=== PATIENT | female | born 1940 | race Caucasian/White ===

== ENCOUNTER 2020-01-29 21:41 | Emergency (ER) | payer MEDICARE ==
[2020-01-29 21:59] VITALS: RESP 18; TEMP 97.9
[2020-01-29] MEDS ORDERED: diphenhydrAMINE 50 MG/ML 1 ML VIAL IVP STA (22:15)
[2020-01-29] MEDS ORDERED: SODIUM CHLORIDE 0.9% 1,000 ML IV STA (22:15)
[2020-01-29] MEDS ORDERED: ONDANSETRON 4 MG/2 ML VIAL IVP STA (22:15)
[2020-01-29] MEDS ORDERED: KETOROLAC 30 MG/ML 1 ML VIAL IVP STA (22:15)
--- NOTE | 2020-01-29 22:18 | ED ---
General Adult HPI - General Chief complaint: Dizziness Stated complaint: Dizziness Time Seen by Provider: 01/29/20 22:05 Source: patient Mode of arrival: wheelchair Limitations: no limitations - History of Present Illness Initial comments: Dictation was produced using [employer] dictation software. please excuse any grammatical, word or spelling errors. This patient was cared for during a federal and state declared state of emergency secondary to Covid 19 Chief Complaint: 79-year-old female presents with headache, dizziness and weakness. History of Present Illness: Patient is a 71-year-old female she has past medical history dyslipidemia and hypertension. Over the last 48-72 hours she has been suffering from dizziness, headache and weakness. Patient states her headache is bifrontal radiates to the occiput. Patient states she has seen her primary care doctor regarding this. She was told it was a cluster headache. She denies his headache being the worse headache of her life. She reports however that she has not had headaches like this prior to the onset of last 2 weeks. Patient has been having on and off symptoms for the last 2 weeks. Shows reports associated nausea and weakness. She states her nausea is headedness. She does not feel like the room is spinning. She does feel generally weak to her entire body. She was recently started on Fioricet for her cluster headaches. Denies any vision changes. Denies any numbness and paresthesias to the arms or legs. The ROS documented in this emergency department record has been reviewed and confirmed by me. Those systems with pertinent positive or negative responses have been documented in the HPI. All other systems are other negative and/or noncontributory. PHYSICAL EXAM: General Impression: Alert and oriented x3, not in acute distress HEENT: Normocephalic atraumatic, extra-ocular movements intact, pupils equal and reactive to light bilaterally, mucous membranes moist. Cardiovascular: Heart regular rate and rhythm Chest: Able to complete full sentences, no retractions, no tachypnea Abdomen: abdomen soft, non-tender, non-distended, no organomegaly Musculoskeletal: Pulses present and equal in all extremities, no peripheral edema Motor: no focal deficits noted Neurological: CN II-XII grossly intact, no focal motor or sensory deficits noted, negative Kernig's, negative Brudzinski's Skin: Intact with no visualized rashes Psych: Normal affect and mood ED course: 79-year-old female presents with headache, dizziness and generalized weakness. Signs upon arrival are within acceptable limits. EKGs benign. Laboratory evaluation obtained. CBC unremarkable. Metabolic panel shows sodium 128, potassium 3.3, magnesium 1.3. Patient given intravenous fluids, headache cocktail and by mouth magnesium and potassium. C-reactive protein is negative. No concern for cancer arteritis. Patient given intravenous fluids, headache cocktail. Clinical presentation is likely secondary to symptomatic hyponatremia. Hyponatremia is mild. She was given intravenous fluids. Concern that there is a current pandemic patient would prefer to be discharge. She is told to lightly salted food for the next several days. 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 She is told to follow-up with her primary care doctor regarding this. Patient clear for discharge. She is told to return to the emergency Department with any worsening symptoms. EKG interpretation: Ventricular rate 73, normal sinus rhythm, GA interval 152, QRS 96, QTC 453. No GA prolongation, no QTC prolongation, no ST or T-wave changes noted. . Overall, this EKG is unremarkable - Related Data Allergies Allergy/AdvReac Type Severity Reaction Status Date / Time No Known Allergies Allergy Verified 01/29/20 21:59 Review of Systems ROS Statement: Those systems with pertinent positive or pertinent negative responses have been documented in the HPI. ROS Other: All systems not noted in ROS Statement are negative. Past Medical History Past Medical History: Hyperlipidemia, Hypertension History of Any Multi-Drug Resistant Organisms: None Reported Past Surgical History: Hysterectomy Past Psychological History: No Psychological Hx Reported Smoking Status: Never smoker Past Alcohol Use History: None Reported Past Drug Use History: None Reported General Exam Limitations: no limitations Course Vital Signs 01/29/20 01/29/20 21:57 23:00 Temperature 97.9 F Pulse Rate 71 74 Respiratory 18 18 Rate Blood Pressure 172/69 164/70 O2 Sat by Pulse 99 99 Oximetry Medical Decision Making - Lab Data Result diagrams: 01/29/20 22:12 01/29/20 22:12 Lab Results 01/29/20 01/29/20 01/29/20 Range/Units 22:12 22:12 22:12 WBC 9.7 (3.8-10.6) k/uL RBC 4.67 (3.80-5.40) m/uL Hgb 14.0 (11.4-16.0) gm/dL Hct 40.2 (34.0-46.0) % MCV 86.1 (80.0-100.0) fL MCH 30.0 (25.0-35.0) pg MCHC 34.8 (31.0-37.0) g/dL RDW 12.7 (11.5-15.5) % Plt Count 263 (150-450) k/uL Neutrophils % 62 % Lymphocytes % 29 % Monocytes % 6 % Eosinophils % 1 % Basophils % 0 % Neutrophils # 6.0 (1.3-7.7) k/uL Lymphocytes # 2.8 (1.0-4.8) k/uL Monocytes # 0.5 (0-1.0) k/uL Eosinophils # 0.1 (0-0.7) k/uL Basophils # 0.0 (0-0.2) k/uL Sodium 128 L (137-145) mmol/L Potassium 3.3 L (3.5-5.1) mmol/L Chloride 89 L (98-107) mmol/L Carbon Dioxide 28 (22-30) mmol/L Anion Gap 11 mmol/L BUN 18 H (7-17) mg/dL Creatinine 0.73 (0.52-1.04) mg/dL Est GFR (CKD-EPI)AfAm >90 (>60 ml/min/1.73 sqM) Est GFR (CKD-EPI)NonAf 79 (>60 ml/min/1.73 sqM) Glucose 112 H (74-99) mg/dL POC Glucose (mg/dL) (75-99) mg/dL POC Glu Label Cutter ID Calcium 10.1 (8.4-10.2) mg/dL Magnesium 1.3 L (1.6-2.3) mg/dL C-Reactive Protein <5.0 (<10.0) mg/L 01/29/20 Range/Units 22:26 WBC (3.8-10.6) k/uL RBC (3.80-5.40) m/uL Hgb (11.4-16.0) gm/dL Hct (34.0-46.0) % MCV (80.0-100.0) fL MCH (25.0-35.0) pg MCHC (31.0-37.0) g/dL RDW (11.5-15.5) % Plt Count (150-450) k/uL Neutrophils % % Lymphocytes % % Monocytes % % Eosinophils % % Basophils % % Neutrophils # (1.3-7.7) k/uL Lymphocytes # (1.0-4.8) k/uL Monocytes # (0-1.0) k/uL Eosinophils # (0-0.7) k/uL Basophils # (0-0.2) k/uL Sodium (137-145) mmol/L Potassium (3.5-5.1) mmol/L Chloride (98-107) mmol/L Carbon Dioxide (22-30) mmol/L Anion Gap mmol/L BUN (7-17) mg/dL Creatinine (0.52-1.04) mg/dL Est GFR (CKD-EPI)AfAm (>60 ml/min/1.73 sqM) Est GFR (CKD-EPI)NonAf (>60 ml/min/1.73 sqM) Glucose (74-99) mg/dL POC Glucose (mg/dL) 118 H (75-99) mg/dL POC Glu Label Cutter ID Rubén Loya Calcium (8.4-10.2) mg/dL Magnesium (1.6-2.3) mg/dL C-Reactive Protein (<10.0) mg/L Disposition Clinical Impression: Hyponatremia Disposition: HOME SELF-CARE Condition: Good Instructions (If sedation given, give patient instructions): Hyponatremia (ED) Is patient prescribed a controlled substance at d/c from ED?: No Referrals: Nonstaff,Physician [REFERRING] - 1-2 days Time of Disposition: 23:28
[2020-01-29 22:28] LABS: Glucose,Whole Blood 118 mg/dL (75-99)
[2020-01-29 22:32] LABS: Basophils % (A) 0 %; Eosinophils # (A) 0.1 k/uL (0-0.7); Eosinophils % (A) 1 %; HCT 40.2 % (34.0-46.0); Lymphocytes # (A) 2.8 k/uL (1.0-4.8); Lymphocytes % (A) 29 %; MCHC 34.8 g/dL (31.0-37.0); MCV 86.1 fL (80.0-100.0); Mean Platelet Volume 6.7; Monocytes # (A) 0.5 k/uL (0-1.0); Monocytes % (A) 6 %; Neutrophils % (A) 62 %; Platelet Count 263 k/uL (150-450); RBC 4.67 m/uL (3.80-5.40); RDW 12.7 % (11.5-15.5); WBC 9.7 k/uL (3.8-10.6)
[2020-01-29 22:43] LABS: African American GFR (CKD) >90 (>60 ml/min/1.73 sqM); Anion Gap 11 mmol/L; Blood Urea Nitrogen 18 mg/dL (7-17); Calcium 10.1 mg/dL (8.4-10.2); Carbon Dioxide 28 mmol/L (22-30); Chloride 89 mmol/L (98-107); Glucose 112 mg/dL (74-99); Magnesium 1.3 mg/dL (1.6-2.3); Non-African American GFR(CKD) 79 (>60 ml/min/1.73 sqM); Potassium 3.3 mmol/L (3.5-5.1); Sodium 128 mmol/L (137-145)
[2020-01-29] MEDS ORDERED: MAGNESIUM OXIDE 400 MG TAB PO STA (22:50)
[2020-01-29] MEDS ORDERED: POTASSIUM CHLORIDE ER 20 MEQ TAB.ER PO STA (22:53)
--- NOTE | 2020-01-29 23:15 | CT ---
EXAMINATION TYPE: CT brain wo con DATE OF EXAM: 01/29/2020 HISTORY: headache CT DLP: 1099.4 mGycm. Automated Exposure Control for Dose Reduction was Utilized. TECHNIQUE: CT scan of the head is performed without contrast. COMPARISON: None. FINDINGS: There is no acute intracranial hemorrhage or midline shift identified. There is diffuse v entricular and sulcal prominence consistent with mild diffuse age-related cerebral atrophy. There is low-attenuation in the deep and periventricular white matter consistent with chronic small vessel is chemic change in patient of this age. Low lying cerebellar tonsils noted sagittal image 39. The globe s are intact and the visualized sinuses are clear. IMPRESSION: No acute intracranial hemorrhage or midline shift. There is mild diffuse age-related ce rebral atrophy and more moderate to advanced chronic small vessel ischemic change along with underlyi ng Chiari type I malformation noted.
[2020-01-29] MEDS ORDERED: ACETAMINOPHEN TAB 500 MG TAB PO STA (23:27)
[2020-01-30 00:20] VITALS: BP 142/68; PULSE 67
== END 2020-01-30 | disposition home or self-care (01) ==
LOC: EC 21:41
DX: E87.1 Hypo-osmolality and hyponatremia (principal); I10 Essential (primary) hypertension; E78.5 Hyperlipidemia, unspecified
CPT/HCPCS: 36415; 93005; 80048; 83735; 85025; 86140; 70450; 99285; 96374; 96375 ×2; 96361; J1200; J2405; J1885

== ENCOUNTER 2021-10-28 03:29 | Emergency (ER) | payer MEDICARE ==
[2021-10-28 03:37] VITALS: TEMP 97.9
[2021-10-28] MEDS ORDERED: SODIUM CHLORIDE 0.9% 500 ML 500 ML IV STA (03:47)
[2021-10-28] MEDS ORDERED: LORazepam 2 MG/ML INJ IV STA (03:50)
--- NOTE | 2021-10-28 03:53 | ED ---
General Adult HPI - General Chief complaint: Recheck/Abnormal Lab/Rx Stated complaint: HBP, Headache Time Seen by Provider: 10/28/21 03:35 Source: patient, EMS Mode of arrival: EMS Limitations: no limitations - History of Present Illness Initial comments: This patient is an 81-year-old woman who presents to be evaluated for hypertension. The patient states that she was at home tonight and she woke up with a feeling like her head was pounding. She went and checked her blood pressure and it was 165/90 or so. She states that she started to feel anxious and every time she checked her blood pressure was higher. The patient denies chest pain states that she was only feeling a little bit of a pounding. She states that they had sensation is very mild. No dyspnea, diaphoresis, nausea or vomiting. Onset/Timin -: hour(s) Location: head, chest Severity scale (1-10): 2 Quality: other (Pounding) Consistency: constant Improves with: none Worsens with: none Associated Symptoms: denies other symptoms Treatments Prior to Arrival: none - Related Data Previous Rx's Medication Instructions Recorded Magnesium Oxide [Magox 400] 400 mg PO DAILY #15 tablet 10/28/21 Potassium Chloride ER [K-Dur 20] 20 meq PO DAILY #15 tab 10/28/21 Allergies Allergy/AdvReac Type Severity Reaction Status Date / Time No Known Allergies Allergy Verified 10/28/21 03:32 Review of Systems ROS Statement: Those systems with pertinent positive or pertinent negative responses have been documented in the HPI. ROS Other: All systems not noted in ROS Statement are negative. Constitutional: Denies: fever, chills, weakness Eyes: Denies: eye pain, vision change Respiratory: Denies: cough, dyspnea Cardiovascular: Reports: as per HPI, chest pain, palpitations. Denies: o rthopnea, edema, syncope Gastrointestinal: Denies: abdominal pain, vomiting, diarrhea Genitourinary: Denies: dysuria, hematuria Musculoskeletal: Denies: back pain Skin: Denies: rash Neurological: Reports: headache. Denies: weakness, numbness Psychiatric: Reports: anxiety Past Medical History Past Medical History: Hyperlipidemia, Hypertension, Renal Disease History of Any Multi-Drug Resistant Organisms: None Reported Past Surgical History: Hysterectomy Past Psychological History: No Psychological Hx Reported Smoking Status: Former smoker Past Alcohol Use History: None Reported Past Drug Use History: None Reported General Exam Limitations: no limitations General appearance: alert, in no apparent distress, anxious Head exam: Present: atraumatic, normocephalic Eye exam: Present: normal appearance. Absent: scleral icterus, conjunctival injection Respiratory exam: Present: normal lung sounds bilaterally. Absent: respiratory distress, wheezes, rales, rhonchi, stridor Cardiovascular Exam: Present: regular rate, normal rhythm, normal heart sounds. Absent: systolic murmur, diastolic murmur, rubs, gallop GI/Abdominal exam: Present: soft. Absent: distended, tenderness, guarding, rebound, rigid, mass Extremities exam: Present: normal inspection, normal capillary refill. Absent: pedal edema, calf tenderness Back exam: Present: normal inspection. Absent: CVA tenderness (R), CVA tenderness (L) Neurological exam: Present: alert Skin exam: Present: warm, dry, intact, normal color. Absent: rash Course Vital Signs 10/28/21 10/28/21 10/28/21 03:32 04:37 05:05 Temperature 97.9 F Pulse Rate 74 60 60 Respiratory 16 16 14 Rate Blood Pressure 168/71 142/62 116/60 O2 Sat by Pulse 98 98 97 Oximetry EKG Findings - EKG Results: EKG: interpreted by MALISSA, sinus rhythm (Rate 70 bpm), normal axis, normal ST/T - Blocks, Cornelia, Hypertrophy, ST Abn: QRS axis and voltage: low voltage (<0.5 MV total QRS and <1.0 MV in each precordial lead) Repolarization changes or abnormalities: nonspecific abnormality, ST segment, and/or T wave Medical Decision Making - Lab Data Result diagrams: 10/28/21 03:45 10/28/21 03:45 Lab Results 10/28/21 10/28/21 10/28/21 Range/Units 03:45 03:45 03:45 WBC 10.6 (3.8-10.6) k/uL RBC 4.42 (3.80-5.40) m/uL Hgb 13.2 (11.4-16.0) gm/dL Hct 39.1 (34.0-46.0) % MCV 88.5 (80.0-100.0) fL MCH 29.8 (25.0-35.0) pg MCHC 33.7 (31.0-37.0) g/dL RDW 13.5 (11.5-15.5) % Plt Count 228 (150-450) k/uL MPV 7.2 Neutrophils % 76 % Lymphocytes % 17 % Monocytes % 4 % Eosinophils % 1 % Basophils % 0 % Neutrophils # 8.1 H (1.3-7.7) k/uL Lymphocytes # 1.8 (1.0-4.8) k/uL Monocytes # 0.5 (0-1.0) k/uL Eosinophils # 0.1 (0-0.7) k/uL Basophils # 0.0 (0-0.2) k/uL PT 10.6 (9.0-12.0) sec INR 1.0 (<1.2) APTT 25.4 (22.0-30.0) sec Sodium 131 L (137-145) mmol/L Potassium 3.3 L (3.5-5.1) mmol/L Chloride 98 (98-107) mmol/L Carbon Dioxide 21 L (22-30) mmol/L Anion Gap 12 mmol/L BUN 15 (7-17) mg/dL Creatinine 0.69 (0.52-1.04) mg/dL Est GFR (CKD-EPI)AfAm >90 (>60 ml/min/1.73 sqM) Est GFR (CKD-EPI)NonAf 83 (>60 ml/min/1.73 sqM) Glucose 133 H (74-99) mg/dL Calcium 8.8 (8.4-10.2) mg/dL Magnesium 1.4 L (1.6-2.3) mg/dL Total Bilirubin 0.7 (0.2-1.3) mg/dL AST 31 (14-36) U/L ALT 32 (4-34) U/L Alkaline Phosphatase 92 (38-126) U/L Troponin I (0.000-0.034) ng/mL Total Protein 6.9 (6.3-8.2) g/dL Albumin 4.2 (3.5-5.0) g/dL 10/28/21 Range/Units 03:45 WBC (3.8-10.6) k/uL RBC (3.80-5.40) m/uL Hgb (11.4-16.0) gm/dL Hct (34.0-46.0) % MCV (80.0-100.0) fL MCH (25.0-35.0) pg MCHC (31.0-37.0) g/dL RDW (11.5-15.5) % Plt Count (150-450) k/uL MPV Neutrophils % % Lymphocytes % % Monocytes % % Eosinophils % % Basophils % % Neutrophils # (1.3-7.7) k/uL Lymphocytes # (1.0-4.8) k/uL Monocytes # (0-1.0) k/uL Eosinophils # (0-0.7) k/uL Basophils # (0-0.2) k/uL PT (9.0-12.0) sec INR (<1.2) APTT (22.0-30.0) sec Sodium (137-145) mmol/L Potassium (3.5-5.1) mmol/L Chloride (98-107) mmol/L Carbon Dioxide (22-30) mmol/L Anion Gap mmol/L BUN (7-17) mg/dL Creatinine (0.52-1.04) mg/dL Est GFR (CKD-EPI)AfAm (>60 ml/min/1.73 sqM) Est GFR (CKD-EPI)NonAf (>60 ml/min/1.73 sqM) Glucose (74-99) mg/dL Calcium (8.4-10.2) mg/dL Magnesium (1.6-2.3) mg/dL Total Bilirubin (0.2-1.3) mg/dL AST (14-36) U/L ALT (4-34) U/L Alkaline Phosphatase (38-126) U/L Troponin I <0.012 (0.000-0.034) ng/mL Total Protein (6.3-8.2) g/dL Albumin (3.5-5.0) g/dL Disposition Clinical Impression: Hypertension, Hypokalemia, Hypomagnesemia Disposition: HOME SELF-CARE Condition: Good Instructions (If sedation given, give patient instructions): Hypertension (ED) Prescriptions: Potassium Chloride ER [K-Dur 20] 20 meq PO DAILY #15 tab Magnesium Oxide [Magox 400] 400 mg PO DAILY #15 tablet Is patient prescribed a controlled substance at d/c from ED?: No Referrals: Melissa Duffy DO [Primary Care Provider] - 1-2 days
[2021-10-28 03:58] LABS: Basophils % (A) 0 %; Eosinophils # (A) 0.1 k/uL (0-0.7); Eosinophils % (A) 1 %; HCT 39.1 % (34.0-46.0); HGB 13.2 gm/dL (11.4-16.0); Lymphocytes # (A) 1.8 k/uL (1.0-4.8); Lymphocytes % (A) 17 %; MCH 29.8 pg (25.0-35.0); MCHC 33.7 g/dL (31.0-37.0); MCV 88.5 fL (80.0-100.0); Mean Platelet Volume 7.2; Monocytes # (A) 0.5 k/uL (0-1.0); Monocytes % (A) 4 %; Neutrophils # (A) 8.1 k/uL (1.3-7.7); Neutrophils % (A) 76 %; Platelet Count 228 k/uL (150-450); RBC 4.42 m/uL (3.80-5.40); RDW 13.5 % (11.5-15.5); WBC 10.6 k/uL (3.8-10.6)
[2021-10-28 04:07] LABS: Partial Thromboplastin Time 25.4 sec (22.0-30.0); Prothrombin Time 10.6 sec (9.0-12.0)
--- NOTE | 2021-10-28 04:11 | XR ---
EXAMINATION TYPE: XR chest 1V portable DATE OF EXAM: 10/28/2021 COMPARISON: NONE HISTORY: Chest TECHNIQUE: Single view FINDINGS: There is minimal pleural reaction lateral left lung base. Heart is top normal in size. Ther e is no heart failure. There are no hilar masses. Bony thorax is intact. IMPRESSION: Minimal pleural reaction or infiltrate lateral left lung base. No heart failure.
[2021-10-28 04:19] LABS: ALT 32 U/L (4-34); AST 31 U/L (14-36); African American GFR (CKD) >90 (>60 ml/min/1.73 sqM); Albumin 4.2 g/dL (3.5-5.0); Alkaline Phosphatase 92 U/L (38-126); Anion Gap 12 mmol/L; Blood Urea Nitrogen 15 mg/dL (7-17); Calcium 8.8 mg/dL (8.4-10.2); Carbon Dioxide 21 mmol/L (22-30); Chloride 98 mmol/L (98-107); Glucose 133 mg/dL (74-99); Magnesium 1.4 mg/dL (1.6-2.3); Non-African American GFR(CKD) 83 (>60 ml/min/1.73 sqM); Potassium 3.3 mmol/L (3.5-5.1); Sodium 131 mmol/L (137-145); Total Bilirubin 0.7 mg/dL (0.2-1.3); Total Protein 6.9 g/dL (6.3-8.2)
[2021-10-28] MEDS ORDERED: MAGNESIUM OXIDE 400 MG TAB PO STA (05:05)
[2021-10-28] MEDS ORDERED: POTASSIUM CHLORIDE ER 20 MEQ TAB.ER PO STA (05:05)
[2021-10-28 07:38] VITALS: BP 120/64; PULSE 76; RESP 18
== END 2021-10-28 07:38 | disposition home or self-care (01) ==
LOC: EC 03:29
DX: I10 Essential (primary) hypertension (principal); E87.6 Hypokalemia; E83.42 Hypomagnesemia; E78.5 Hyperlipidemia, unspecified; Z90.710 Acquired absence of both cervix and uterus; Z87.891 Personal history of nicotine dependence
CPT/HCPCS: 36415; 71045; 80053; 83735; 84484; 85025; 85610; 85730; 93005; 96361; 96374; 99284

== ENCOUNTER 2022-12-22 00:18 | Emergency (ER) | payer MEDICARE ==
[2022-12-22 00:44] VITALS: RESP 18
[2022-12-22 01:58] VITALS: PULSE 69; TEMP 98
[2022-12-22] MEDS ORDERED: SODIUM CHLORIDE 0.9% 500 ML 500 ML IV STA (02:00)
[2022-12-22 02:45] LABS: Basophils % (A) 0 %; Eosinophils % (A) 0 %; HCT 38.4 % (34.0-46.0); HGB 13.4 gm/dL (11.4-16.0); Lymphocytes # (A) 1.6 k/uL (1.0-4.8); Lymphocytes % (A) 12 %; MCH 29.5 pg (25.0-35.0); MCHC 34.9 g/dL (31.0-37.0); MCV 84.4 fL (80.0-100.0); Mean Platelet Volume 7.1; Monocytes # (A) 0.5 k/uL (0-1.0); Monocytes % (A) 4 %; Neutrophils # (A) 10.8 k/uL (1.3-7.7); Neutrophils % (A) 83 %; Platelet Count 239 k/uL (150-450); RBC 4.55 m/uL (3.80-5.40); RDW 12.7 % (11.5-15.5)
[2022-12-22 02:59] LABS: ALT 34 U/L (4-34); AST 29 U/L (14-36); African American GFR (CKD) >90 (>60 ml/min/1.73 sqM); Albumin 4.4 g/dL (3.5-5.0); Alkaline Phosphatase 123 U/L (38-126); Blood Urea Nitrogen 11 mg/dL (7-17); Calcium 9.3 mg/dL (8.4-10.2); Carbon Dioxide 26 mmol/L (22-30); Glucose 131 mg/dL (74-99); Magnesium 1.6 mg/dL (1.6-2.3); Non-African American GFR(CKD) 88 (>60 ml/min/1.73 sqM); Total Bilirubin 0.6 mg/dL (0.2-1.3); Total Protein 7.4 g/dL (6.3-8.2)
--- NOTE | 2022-12-22 02:59 | ED ---
General Adult HPI - General Chief complaint: GI Bleed Stated complaint: High BloodPressure Time Seen by Provider: 12/22/22 01:50 Source: patient, RN notes reviewed, old records reviewed Mode of arrival: ambulatory - History of Present Illness Initial comments: 82-year-old female presents for evaluation. Patient states that her blood pressure had been running high and she was concerned. She had some mild abdominal discomfort and had noticed some bright red blood on the toilet paper. She does have a history of hemorrhoids. Combination of these symptoms that prompt an ER visit for evaluation. She has no chest pain. No cough. No fever. No dyspnea. No abdominal pain, describes this as a mild discomfort. - Related Data Previous Rx's Medication Instructions Recorded Magnesium Oxide [Magox 400] 400 mg PO DAILY #15 tablet 10/28/21 Potassium Chloride ER [K-Dur 20] 20 meq PO DAILY #15 tab 10/28/21 Allergies Allergy/AdvReac Type Severity Reaction Status Date / Time No Known Allergies Allergy Verified 12/22/22 00:44 Review of Systems ROS Statement: Those systems with pertinent positive or pertinent negative responses have been documented in the HPI. ROS Other: All systems not noted in ROS Statement are negative. Past Medical History Past Medical History: Hyperlipidemia, Hypertension, Renal Disease History of Any Multi-Drug Resistant Organisms: None Reported Past Surgical History: Hysterectomy Past Psychological History: No Psychological Hx Reported Smoking Status: Former smoker Past Alcohol Use History: None Reported Past Drug Use History: None Reported General Exam General appearance: alert, in no apparent distress Head exam: Present: atraumatic, normocephalic Eye exam: Present: normal appearance, PERRL ENT exam: Present: normal exam Neck exam: Present: normal inspection. Absent: tenderness, meningismus Respiratory exam: Present: normal lung sounds bilaterally. Absent: respiratory distress, wheezes Cardiovascular Exam: Present: regular rate, normal rhythm GI/Abdominal exam: Present: soft. Absent: distended, tenderness, guarding, rebound Rectal exam: Present: hemorrhoids Extremities exam: Present: normal inspection, normal capillary refill. Absent: pedal edema, calf tenderness Neurological exam: Present: alert, oriented X3, CN II-XII intact. Absent: motor sensory deficit Psychiatric exam: Present: normal affect, normal mood Skin exam: Present: warm, dry, intact. Absent: cyanosis, diaphoretic Course Vital Signs 12/22/22 12/22/22 12/22/22 00:37 01:44 02:53 Temperature 98.3 F 98 F Pulse Rate 67 69 Respiratory 18 18 Rate Blood Pressure 159/77 183/74 157/89 O2 Sat by Pulse 98 94 L Oximetry EKG Findings - EKG Comments: EKG Findings:: EKG: Sinus rhythm, ventricular rate 65, MS interval 161, QRS duration 100, QTC 450, no ST segment elevation. Medical Decision Making - Medical Decision Making Was pt. sent in by a medical professional or institution (, PA, MENS LOCKER ROOM ATTENDANT, urgent care, hospital, or custodial...) When possible be specific @ -[No] Did you speak to anyone other than the patient for history (EMS, parent, family, police, friend...)? What history was obtained from this source @ -[No] Did you review nursing and triage notes (agree or disagree)? Why? @ -[I reviewed and agree with nursing and triage notes] Were old charts reviewed (outside hosp., previous admission, EMS record, old EKG, old radiological studies, urgent care reports/EKG's, custodial records)? Report findings @ -Reviewed prior sodium levels Differential Diagnosis (chest pain, altered mental status, abdominal pain women, abdominal pain men, vaginal bleeding, weakness, fever, dyspnea, syncope, headach e, dizziness, GI bleed, back pain, seizure, CVA, palpatations, mental health, musculoskeletal)? @Differential GI Bleed: Esophageal varices, aortoenteric fistula, Regi-Smallwood, gastritis, peptic ulcer disease, diverticulosis, inflammatory bowel disease, hemorrhoids, fissure, coli tis, malignancy, Meckels diverticulum, this is not meant to be an all-inclusive list. EKG interpreted by me (3pts min.). @ -[As above] X-rays interpreted by me (1pt min.). @ -[None done] CT interpreted by me (1pt min.). @ -[None done] U/S interpreted by me (1pt. min.). @ -[None done] What testing was considered but not performed or refused? (CT, X-rays, U/S, labs)? Why? @ -[None] What meds were considered but not given or refused? Why? @ -[None] Did you discuss the management of the patient with other professionals (professionals i.e. , PA, MENS LOCKER ROOM ATTENDANT, lab, RT, psych nurse, social studies teacher, planer tailer, teacher, chief business development officer, disease case manager)? Give summary @ -[No] Was smoking cessation discussed for >3mins.? @ -[No] Was critical care preformed (if so, how long)? @ -[No] Were there social determinants of health that impacted care today? How? (Homelessness, low income, unemployed, alcoholism, drug addiction, transportation, low edu. Level, literacy, decrease access to med. care, fpc, rehab)? @ -[No] Was there de-escalation of care discussed even if they declined (Discuss DNR or withdrawal of care, Hospice)? DNR status @ -[No] What co-morbidities impacted this encounter? (DM, HTN, Smoking, COPD, CAD, Cancer, CVA, ARF, Chemo, Hep., AIDS, mental health diagnosis, sleep apnea, morbid obesity)? @ -[None] Was patient admitted / discharged? Hospital course, mention meds given and route, prescriptions, significant lab abnormalities, going to OR and other pertinent info. @ -[82-year-old female presenting with chief complaint of elevated blood pressure and small amount of bright red rectal bleeding. She does have hemorrhoid on examination which is likely the source of her bleeding. Hemoglobin is stable. She has a mild hyponatremia which is at baseline. Her blood pressure normalizes in the emergency department without antihypertensive medications. She should follow-up with her primary care physician. She has no complaints at the time my reevaluation.] Undiagnosed new problem with uncertain prognosis? @ -[No] Drug Therapy requiring intensive monitoring for toxicity (Heparin, Nitro, Insulin, Cardizem)? @ -[No] Were any procedures done? @ -[No] Diagnosis/symptom? @ -[Hemorrhoids, hypertension] - Lab Data Result diagrams: 12/22/22 02:26 12/22/22 02: Lab Results 12/22/22 12/22/22 12/22/22 Range/Units 02: 02: 02: WBC 13.0 H (3.8-10.6) k/uL RBC 4.55 (3.80-5.40) m/uL Hgb 13.4 (11.4-16.0) gm/dL Hct 38.4 (34.0-46.0) % MCV 84.4 (80.0-100.0) fL MCH 29.5 (25.0-35.0) pg MCHC 34.9 (31.0-37.0) g/dL RDW 12.7 (11.5-15.5) % Plt Count 239 (150-450) k/uL MPV 7.1 Neutrophils % 83 % Lymphocytes % 12 % Monocytes % 4 % Eosinophils % 0 % Basophils % 0 % Neutrophils # 10.8 H (1.3-7.7) k/uL Lymphocytes # 1.6 (1.0-4.8) k/uL Monocytes # 0.5 (0-1.0) k/uL Eosinophils # 0.0 (0-0.7) k/uL Basophils # 0.0 (0-0.2) k/uL PT 10.3 (9.0-12.0) sec INR 1.0 (<1.2) APTT 25.8 (22.0-30.0) sec Sodium 128 L (137-145) mmol/L Potassium 4.0 (3.5-5.1) mmol/L Chloride 93 L (98-107) mmol/L Carbon Dioxide 26 (22-30) mmol/L Anion Gap 9 mmol/L BUN 11 (7-17) mg/dL Creatinine 0.56 (0.52-1.04) mg/dL Est GFR (CKD-EPI)AfAm >90 (>60 ml/min/1.73 sqM) Est GFR (CKD-EPI)NonAf 88 (>60 ml/min/1.73 sqM) Glucose 131 H (74-99) mg/dL Calcium 9.3 (8.4-10.2) mg/dL Magnesium 1.6 (1.6-2.3) mg/dL Total Bilirubin 0.6 (0.2-1.3) mg/dL AST 29 (14-36) U/L ALT 34 (4-34) U/L Alkaline Phosphatase 123 (38-126) U/L Troponin I (0.000-0.034) ng/mL Total Protein 7.4 (6.3-8.2) g/dL Albumin 4.4 (3.5-5.0) g/dL 12/22/22 Range/Units 02:26 WBC (3.8-10.6) k/uL RBC (3.80-5.40) m/uL Hgb (11.4-16.0) gm/dL Hct (34.0-46.0) % MCV (80.0-100.0) fL MCH (25.0-35.0) pg MCHC (31.0-37.0) g/dL RDW (11.5-15.5) % Plt Count (150-450) k/uL MPV Neutrophils % % Lymphocytes % % Monocytes % % Eosinophils % % Basophils % % Neutrophils # (1.3-7.7) k/uL Lymphocytes # (1.0-4.8) k/uL Monocytes # (0-1.0) k/uL Eosinophils # (0-0.7) k/uL Basophils # (0-0.2) k/uL PT (9.0-12.0) sec INR (<1.2) APTT (22.0-30.0) sec Sodium (137-145) mmol/L Potassium (3.5-5.1) mmol/L Chloride (98-107) mmol/L Carbon Dioxide (22-30) mmol/L Anion Gap mmol/L BUN (7-17) mg/dL Creatinine (0.52-1.04) mg/dL Est GFR (CKD-EPI)AfAm (>60 ml/min/1.73 sqM) Est GFR (CKD-EPI)NonAf (>60 ml/min/1.73 sqM) Glucose (74-99) mg/dL Calcium (8.4-10.2) mg/dL Magnesium (1.6-2.3) mg/dL Total Bilirubin (0.2-1.3) mg/dL AST (14-36) U/L ALT (4-34) U/L Alkaline Phosphatase (38-126) U/L Troponin I <0.012 (0.000-0.034) ng/mL Total Protein (6.3-8.2) g/dL Albumin (3.5-5.0) g/dL Disposition Clinical Impression: Hemorrhoids, Hypertension Disposition: HOME SELF-CARE Condition: Good Instructions (If sedation given, give patient instructions): Hemorrhoids (DC), Hypertension (ED) Is patient prescribed a controlled substance at d/c from ED?: No Referrals: Melissa Duffy DO [Primary Care Provider] - 1-2 days Time of Disposition: 04:00
[2022-12-22 03:14] LABS: Partial Thromboplastin Time 25.8 sec (22.0-30.0); Prothrombin Time 10.3 sec (9.0-12.0)
[2022-12-22 03:32] LABS: Anion Gap 9 mmol/L; Chloride 93 mmol/L (98-107); Sodium 128 mmol/L (137-145)
[2022-12-22 04:32] VITALS: BP 147/67
== END 2022-12-22 04:32 | disposition home or self-care (01) ==
LOC: EC 00:18
DX: K64.9 Unspecified hemorrhoids (principal); I10 Essential (primary) hypertension; Z87.891 Personal history of nicotine dependence
CPT/HCPCS: 36415; 80053; 83735; 84484; 85025; 85610; 85730; 93005; 96360; 99285